=== PATIENT | male | born 1960 | race Caucasian/White ===

== ENCOUNTER 2016-10-06 14:52 | Observation (INO) | payer OTHER ==
[~2016-10-06] VITALS: Ht 185.4 cm; Wt 96.0 kg
--- NOTE | 2016-10-06 14:54 | ED.REPORT ---
HPI-General Illness Date of Service Oct 06, 2016 ED Provider: Dr. Diaz The pt is a 56 y/o male with a hx of anxiety and depression with previous suicide attempt who presents to the ED via EMS due to a suicide attempt about 2 hours ago. The pt took 30 tablets of 15mg trazodone. Associated sx include drowsiness. He denies drinking alcohol after taking the medication, recent fall , homicidal ideation, auditory and visual hallucinations, headache, chest pain, SOB, dysuria, shaking , hematochezia, abdominal pain, and diaphoresis. 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 She is concerned that the pt never seeks help when going through a difficult time. He states that this has been making things worse recently, depression is now considered severe. He states that he has had it for a long time, however it has been worse recently. No other complaints at this time. Nursing Notes Stated Complaint: SUICIAL W/OVERDOSE Nursing Notes Reviewed: Yes Allergies: Coded Allergies: No Known Allergies (Unverified , 10/06/16) Scheduled Fluoxetine (Prozac) 20 Mg Capsule 60 MG PO DAILY Scheduled PRN Diazepam (Valium) 10 Mg Tablet 10 MG PO DAILY PRN PRN For Anxiety General Time Seen by MD: 14:53 Chief Complaint Other (suicide attempt) Hx Obtained From: Patient Arrived By: Ambulance Sudden in Onset?: Yes Onset Occurred: 1 - 4 hours ago Symptom Duration: Since onset Severity: Current: No pain currently Severity: Maximum: No pain Recent Healthcare: No recent doctor visit Similar Sx Previous: Yes Past Medical History Past Medical History Depression with previous suicide attempt an year ago Anxiety Chronic back pain Past Surgical History none reported Family History Mother had anxiety Uncle commited suicide Sister has anxiety and seasonal depression Smoking History Never Smoker Social History Alcohol Use: Denies alcohol use Drug Use: Denies drug use Ambulatory Status Independent Review of Systems Reports: drowsiness Denies: drinking alcohol after taking the pills Denies: recent fall Full Review of Systems Constitutional: Denies: Fever Eyes: Denies: Eye pain bilateral Ears / Nose / Throat: Denies: Sore throat Respiratory: Denies: Shortness of breath Cardiovascular: Denies: Chest pain GI: Denies: Abdominal pain, Hematochezia Male: Denies Dysuria Musculoskeletal: Denies: Back pain Hematologic: Denies Bruising Skin: Denies Diaphoresis Neurologic: Denies: Headache, Shaking Psychiatric: Reports: Depression, Stress, Suicidal ideation, Denies: Hallucinations, auditory, Hallucinations, visual, Homicidal ideation Complete sys rev & neg: except as marked. Physical Exam Nursing note and vitals reviewed. Constitutional: Well-developed, well-nourished. Not diaphoretic. No agitation. Head: Normocephalic and atraumatic. Mouth/Throat: Oropharynx is clear. Dry mucous membranes. No oropharyngeal exudate. Eyes: EOM are normal. Pupils are equal, round, and reactive to light. Don't appreciate ocular clonus. Neck: Supple, no tracheal deviation. Cardiovascular: Normal rate, regular rhythm. Equal and intact distal pulses throughout. Pulmonary/Chest: Effort normal and breath sounds normal. No respiratory distress. Abdominal: Soft. No distension. There is no tenderness, rebound, or guarding. Bowel sounds present. Musculoskeletal: Range of motion grossly intact, moving all extremities. No edema or tenderness appreciated. Neurological: Orientedx3. Drowsy but answering all questions. Normal finger to nose testing. Grossly nonfocal exam. Strength and sensation intact and equal to bilateral upper and lower extremities. No inducible clonus. Skin: Warm and dry, no rashes or pallor appreciated. Psychiatric: Suicidal ideation. No homicidal ideation. No auditory and visual hallucinations. Vital Signs Vital Signs Date Time Temp Pulse Resp B/P Pulse Ox O2 Delivery O2 Flow Rate FiO2 10/06/16 16:34 36.7 64 16 119/70 99 Room Air 10/06/16 15:00 36.3 67 17 128/72 97 Room Air Initial VS: Reviewed Interpretation & Diagnostics Lab Results Interpretation Result Diagram: 10/06/16 1515 10/06/16 1515 Test 10/06/16 15:15 White Blood Count 4.9th/mm3 (3.8-10.1) Red Blood Count 5.50mil/mm3 (4.40-5.80) Hemoglobin 16.2g/dL (13.8-17.2) Hematocrit 46.6% (41.0-50.0) Mean Corpuscular Volume 84.7fL (81-100) Mean Corpuscular Hemoglobin 29.5pg (27.0-35.0) Mean Corpuscular Hemoglobin Concent 34.8% (32.0-37.0) Red Cell Distribution Width 14.4% (12.3-15.4) Platelet Count 106bil/L (150-400) Sodium Level 137mEq/L (134-144) Potassium Level 3.6mEq/L (3.5-5.2) Chloride Level 100mEq/L (97-108) Carbon Dioxide Level 21mmol/L (18-29) Blood Urea Nitrogen 3mg/dL (6-24) Creatinine 0.70mg/dL (0.76-1.27) Estimat Glomerular Filtration Rate 125mL/min (>59) Glucose Level 130mg/dL (60-99) Calcium Level 9.5mg/dL (8.5-10.1) Total Bilirubin 1.1mg/dL (0.0-1.2) Aspartate Amino Transf (AST/SGOT) 44U/L (0-50) Alanine Aminotransferase (ALT/SGPT) 35U/L (0-44) Alkaline Phosphatase 96U/L (25-150) Total Protein 7.8g/dL (6.4-8.4) Albumin 4.3g/dL (3.4-5.0) Salicylates Level < 3.0ug/mL (30-250) Acetaminophen Level < 15.0ug/mL Rx (10-25) Alcohols < 10mg/dL (0-10) ECG Interpretation ECG Interpretation: Normal sinnus rhythm. Rate 65. Normal intervals. Time: 15:34 Interpreted by: ED physician Re-Eval/Medical Decision Med Decision/Clinical Course In summary, 56-year-old male presenting to the ED for evaluation after an intentional overdose on trazodone approximately 2 hours prior to arrival. Differential considerations include serotonin syndrome, coingestion with APAP/ salicylate, metabolic abnormality, etc. No agitation, no diaphoresis. No clonus or hyperreflexia appreciated. No tremor. Afebrile. No signs of serotonin syndrome at this time. He denies any coingestions and initial laboratory studies support this with a negative drug screen and negative APAP/salicylate; 4 hours APAP ordered and pending. Poison control contacted, recommended laboratory studies, drug screen, APAP, salicylate levels. CBC grossly within normal limits except for a platelet count of 106, CMP grossly within normal limits. EKG demonstrates sinus rhythm, no acute ischemic changes, normal intervals. He will obviously need psychiatric evaluation once medically clear, awake, and interactive. After discussion with the patient and the inpatient service, decision made to admit the patient for further management and evaluation, telemetry, and psychiatric evaluation once appropriate. Patient and family agreeable to the plan as stated, no further questions. Time of Eval: 15:53 Re-Evaluation/Progress Note: The ED nurse called poison control and was recommended to carry out baseline labs, drug screen, check aspirin and Tylenol levels and supportive care. Consultation : Referral / Consult Name: Jesus Cintron MD Consulted With: Hospitalist Call Returned at: 04:30 Customer Energy Specialist: Will see patient, Agrees with eval, Agrees with plan, Accepts admit Counseled Regarding: Diagnosis, Lab results, Need for admission Discharge & Departure Primary Impression: Overdose Encounter type: initial encounter Injury intent: intentional self-harm Qualified Code: T50.902A - Poisoning by unspecified drugs, medicaments and biological substances, intentional self-harm, initial encounter Additional Impression: Suicide attempt Disposition: ADMITTED TO HOSPITAL Referrals: [facility] Scribe Attestation Portions of this note were transcribed by Sixto Hunt. I,, personally performed the history, physical exam and medical decision-making;I reviewed and confirmed the accuracy of the information in the transcribed note. Signed by Shawnee Zavala. 10/06/16 Дмитрий Diaz MD Oct 06, 2016 14:54 Sixto Hunt Oct 06, 2016 15:28
[2016-10-06 15:00] VITALS: BP 128/72; PULSE 67; RESP 17; O2SAT 97
[2016-10-06] MEDS ORDERED: 0.9% Sodium Chloride 1,000 ML IV ONE (15:11)
[2016-10-06 15:18] LABS: Mean Corpuscular Hemoglobin 29.5 pg (27.0-35.0); Mean Corpuscular Volume 84.7 fL (81-100)
[2016-10-06] MEDS ORDERED: PROZ20 PO (16:00)
[2016-10-06] MEDS ORDERED: DIAZ10TA PO (16:00)
[2016-10-06] MEDS ORDERED: Ondansetron 2 mg/mL 2 mL Inj IVPUSH PRN (16:30)
[2016-10-06 16:34] VITALS: BP 119/70; PULSE 64; RESP 16; O2SAT 99
--- NOTE | 2016-10-06 17:16 | PCM.HPMED ---
Subjective Date of Service Oct 06, 2016 Primary Provider: Admitting Physician: Primary Care Physician: Attending Physician: Chief Complaint: Suicidal attempt History of Present Illness: 56-year-old male with history of depression and anxiety disorder, no significant medical history presenting after drug overdose for suicidal attempt. Patient took 30 pills of trazodone 50 mg. Patient posted his plans on Facebook which alerted his nephew, activated EMS. Sister at the bedside was able to provide information as well as the patient. Patient admitted that he took trazodone for suicidal attempt. He was seen by his psychiatrist a week ago , denied any medicine changes. 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 Patient had first attempt earlier this year. And stated that this is his second episode. ED VS stable, heart [id number], afebrile, Labs showed negative of etoh. cbc/cmp all unremarkable. EKG showed NSR, Qtc<500. ROS: Patient was able to converse, alert and oriented 3, mildly drowsy. Patient denied seizure history, headache, dizziness, chest pain, difficulty breathing, palpitations, blurry vision, sweating, nausea, vomiting, abdominal pain. Patient has been eating okay, usually eats fast food at [place] per sister. denied constipation or diarrhea. Patient denied having previous cardiac disease or arrhythmias or seizure disorder. Patient currently denied homicidal ideation, however still has some thoughts of harming himself. No specific plan Patient is taking Prozac 60 mg every day along point trazodone 50 mg. Valium was also prescribed but patient does not take it. Patient does not remember his psychiatrist's name. d Review of Systems: Pertinent positives as noted in history of present illness. All other systems were reviewed and are negative Allergies Coded Allergies: No Known Allergies (Unverified , 10/06/16) Home Medications Patient is taking Prozac 60 mg every day along point trazodone 50 mg. Valium was also prescribed but patient does not take it. Patient does not remember his psychiatrist's name. PMH As described above in history of present illness Surgical History Denied any surgeries Family History Father had heart attack and diabetes Mother had depression Social History Hx Alcohol Use: No Hx Substance Use: No Hx Tobacco Use: No Smoking Status: Never Smoker Additional Information Lives alone Exam Vital Signs Vital Sign - Last Date Time Temp Pulse Resp B/P Pulse Ox O2 Delivery O2 Flow Rate FiO2 10/06/16 16:34 36.7 64 16 119/70 99 Room Air Exam NAD, comfortably laying down on the bed no JVD, MMM, no LAD RRR, nl s1, s2 no mrg CTAB, no w,c S,ND,NT,normoactive BS+ warm, no edema, pulses 2/2 Lab and Diagnostics Result Diagram: 10/06/16 1515 10/06/16 1515 Assessment & Plan Acute, active Suicidal attempt with drug overdose with trazodone [id number], POA, pt was mildly lethargic per report, however mentation already improving, denied structural heart disease, no s/s of QT prolongation, no hx of seizure, -monitor on telemetry likely 24hrs -hold all psychiatric medicine -Frequent neuro checks every 2 hours -1:1 sitter at the bedside given active suicidal ideation. -utox Chronic, stable Anxiety and depression, appreciate addiction social worker evaluation, patient likely benefit from inpatient psychiatric treatment dispo:Patient will be admitted with inpatient status with expectation of inpatient therapy for more than 2 midnights diet:NPO for now, likely to progress to general dvt ppx:LMWH Full code Time spent 65 minutes Jesus Cintron MD Oct 06, 2016 17:05
[2016-10-06 18:05] VITALS: BP 131/76; PULSE 85; RESP 16; O2SAT 96
--- NOTE | 2016-10-06 18:15 | NUR ---
Admit Pts comes via gurney but able to ambulate with steady gait to bed on own. A&OX4. Denies CP, SOB, Nausea, Pain. IV Right FA SL a this time. Pt denies SI at this time and states that he has no plan. Previous nurse states that pt endorsed SI and had a plan previously in ER. Sitter at bedside at all times. Bilateral eyes reddened. Care continues
[2016-10-06 18:20] VITALS: BP_SYST 129; BP_SYST 131; BP_DIAS 76; PULSE 74; PULSE 85; RESP 16; RESP 17; O2SAT 96; O2SAT 99
[2016-10-06 18:36] VITALS: PULSE 60
[2016-10-06 20:00] VITALS: PULSE 63
[2016-10-07 00:30] VITALS: BP 100/62; PULSE 69; RESP 18; O2SAT 93
[2016-10-07 04:46] VITALS: BP 106/62; PULSE 76; RESP 18; O2SAT 95
--- NOTE | 2016-10-07 05:33 | NUR ---
Safety and mood Pt has been cooperative with all care, denies wish or plan to harm self. One episode of emesis, nausea resolved with Zofran. Alert state allowed for safe swallow and advancement of diet per Md; pt does not have appetite. Observed sleeping through most of night. Ambulates safely in room. Sitter at bedside continuously for safety.
--- NOTE | 2016-10-07 06:21 | NUR ---
Family support Pt gave permission to discuss information with sister when she called. Very supportive family available. Sister, Lucy, left phone number on white board and on top facesheet and would like to be included in planning for discharge. She is especially interested in any services that pt might qualify for assistance and any references that can be given to find community support and services.
[2016-10-07 06:49] LABS: BASOPHILS % (AUTO) 0.2 % (0-3); EOSINOPHILS % (AUTO) 1.7 % (0-5); MONOCYTES % (AUTO) 9.5 % (4-12); Mean Corpuscular Hemoglobin 29.3 pg (27.0-35.0); Mean Corpuscular Volume 88.1 fL (81-100); NEUTROPHILS % (AUTO) 63.7 % (40-74); Platelet Count 122 bil/L (150-400)
[2016-10-07 07:07] LABS: Phosphorus 2.4 mg/dL (2.5-4.9)
[2016-10-07 08:53] VITALS: BP 99/58; PULSE 65; RESP 16; O2SAT 94
--- NOTE | 2016-10-07 10:38 | PCM.PNMED ---
Subjective Date of Service Oct 07, 2016 Subjective pt remained stable overnight, denied SI this AM, sitter at the bedside had episode of emesis once, but currently denied n/v/abd pain, AAOx3, denied, RIZZO, dizziness labs showed mildly elevated bilirubin no event on telemetry Exam Vital Signs Vital Sign - Last Date Time Temp Pulse Resp B/P Pulse Ox O2 Delivery O2 Flow Rate FiO2 10/07/16 08:53 36.8 65 16 99/58 94 Room Air Intake and Output 10/06/16 10/06/16 10/07/16 Cumulative From/Thru 15:00 23:00 07:00 10/06/16 15:00 - 10/07/16 05:37 Intake Total 2000 ml 100 ml 2100 ml Output Total 900 ml 900 ml Balance 1100 ml 100 ml 1200 ml Intake Oral 100 ml 100 ml IV Total 2000 ml 2000 ml Output Urine Total 900 ml 900 ml # Voids 1 1 # Bowel Movements 1 1 Exam NAD, comfortably laying down on the bed no JVD, MMM, no LAD RRR, nl s1, s2 no mrg CTAB, no w,c S,ND,NT,normoactive BS+ warm, no edema, pulses 2/2 IVs and Medications Medications Reviewed: Medications were reviewed in detail Lab and Diagnostics Result Diagram: 10/07/1661910/07/16619 Assessment & Plan Acute, active Suicidal attempt with drug overdose with trazodone [id number], POA, pt was mildly lethargic per report, however mentation already improving, denied structural heart disease, no s/s of QT prolongation, no hx of seizure, pt was monitored on telemetry overnight, no event noted. UTOX was negative. -pt remained asymptomatic, labs are unremarkable. -hold all psychiatric medicine -Frequent neuro checks every 2 hours -1:1 sitter at the bedside given active suicidal ideation. -appreciate Psychiatric consult today to optimize dispo Chronic, stable Anxiety and depression, appreciate secondary social studies teacher evaluation, patient likely benefit from inpatient psychiatric treatment dispo:Patient will be admitted with inpatient status with expectation of inpatient therapy for more than 2 midnights diet:general, pt is medically stable, likely d/c today inpatient psych unit vs home dvt ppx:LMWH Full code Time spent 35min Jesus Cintron MD Oct 07, 2016 10:38
--- NOTE | 2016-10-07 11:42 | NUR ---
Appetite Patient has refused breakfast and lunch and states he just doesn't feel like eating. Mat and I are encouraging the patient to have something to eat and drink. Takes occasional sips of sprite but refuses much more than this. Addendum: 10/07/16 at 1619 by BASSEM CHURCH RN Patient continues to refuse all meals. Continuing to offer patient something to eat and drink.
--- NOTE | 2016-10-07 12:02 | NUR ---
Family Support Patient's sister, Lucy, called to speak with the patient and requested to speak with the patient's nurse. Patient stated that it was okay to speak with his sister about his care. Spoke with Lucy about her desire to get resources for the patient and if there was any change in his plan. Lucy did say that she would like to have his providers closer to [facility] as they are all in [place]. Did speak with the patient about social work coming to speak with him and if he would be accepting of resources for him and he stated that he was and he would very much like them.
--- NOTE | 2016-10-07 12:09 | NUR ---
USP FOLLOW UP: Gave access and faxed facesheet to [facility] per JOHANNA and order Addendum: 10/07/16 at 1243 by LEONARDO WATERS CM ABOVE NOTE ENTERED ON WRONG PATIENT
[2016-10-07 12:21] VITALS: BP 99/61; PULSE 68; RESP 16; O2SAT 95
--- NOTE | 2016-10-07 16:15 | NUR ---
Zully Talked with patient about lovenox order and he reported to me that he has had a blood clot in his leg in the past after one of the times he was hospitalized for pneumonia. Talked with him about preventing a DVT including ambulation and lovenox injections. Encouraged the patient to ambulate in the hallways.
--- NOTE | 2016-10-07 16:18 | CONS ---
[address] [address] CONSULTATION REPORT PATIENT: NATASHA HERNANDEZ : 1960 MR#: [id number] ADMIT: 10/06/2016 JOB ID: [id number] PSYCHIATRIC CONSULTATION: DATE OF SERVICE: 10/07/2016 REQUESTING: Internal Medicine service IDENTIFICATION: The patient is a 56-year-old, white male. 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 He lives in [place]. REASON FOR ADMISSION: Client overdosed on thirty 50 mg trazodone in a suicide attempt. His sister's daughter noticed odd posts on Facebook and called for a welfare check. HISTORY OF PRESENT ILLNESS: I was asked to consult on this patient for evaluation of suicidal ideation and depression. I met with him for a 60 minute eval and reviewed course and records kept by [facility] staff. Client's main issue at this time is poor coping and extreme stress. He also has had symptoms of depression for the past month including poor sleep, interest, appetite, concentration, and over the past 24 hours, suicidal ideation. He has had one previous suicide attempt by overdosing on drugs in a suicide attempt on Thanksgiving. He has been on Prozac for the past 12 months with increasing doses from 20, 40 to 60 mg through provider, Yuli, at [facility]. The condition is fairly acute and has been developing over the past 12 months. Currently it is at a severe intensity manifesting with a 2nd suicide attempt in six months. All the above are made worse by poor sleep and by financial stressors. He is also struggling with the grief of his mother needing to go to geriatric care. 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 His father five years ago and his mother just moved to a group home. As a result, he is living in a mobile home and has severe credit difficulties. He does not see a way out. All the above symptoms are improved when he has good support from family and friends, when he sleeps well and when he has meaningful employment. He is currently presenting with no signs of emotional liability or difficulty with cognition or insight. His reality testing is intact. It is primarily his coping skills that have been overwhelmed. Client denied psychiatric review of systems for letitia, psychosis, anxiety, trauma or substance abuse. PAST MEDICAL HISTORY AND MEDICATIONS: Prozac 60 mg daily. He has been on Prozac starting at 20 mg for 12 months, trazodone 50 mg h.s. ALLERGIES: None. ILLNESSES: Arthritic pain in his knees, hip and back. FAMILY MEDICAL HISTORY: Three brothers, three sisters. He had an uncle who successfully suicided with a gun by shooting himself with a gun when the client was 47. His father at 81. PAST PSYCHIATRIC HISTORY: Client has been seeing a therapist, Yuli, through [facility] since December 2015 after the suicide attempt. He has not seen her for several months. PSYCHOSOCIAL HISTORY: Born in [place], [place]. Raised in the [facility]. 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 History of trauma: None. Drugs and alcohol: None. Lethality: Client had one previous suicide attempt in December 2015 around [facility], similar with an overdose. Client denies suicidal ideation, plan or intent now. Relationship history: Client was for 30 years but has been . Catholic: None. Legal: none. PHYSICAL EXAMINATION AND LABORATORY DATA: Reviewed from Internal Medicine and essentially normal. MENTAL STATUS EXAMINATION: Client disheveled but good eye contact. Behavior was calm. Attitude was animated. Speech was normal rate and rhythm. He is cooperative and pleasant. Mood euthymic. Affect congruent. Normal intensity, full range. Thought process, client is able to relate a coherent history. His thought process is coherent and logical and spontaneous. He does not have black and white thinking, nor tunnel vision. No signs of psychosis. Thought content, significant for themes of future planning, how he is going to take care of his dog and have more time with his family. He denied suicidal ideation, plan, or intent. Alert and oriented to person, place, and date. Insight and judgment appropriate. Impulse control highly contained but has a difficult time handling impulses of shame and embarrassment about money. Reality testing intact. Competence to handle current stressors appears to have returned to baseline. IMPRESSION: Client is a 56-year-old, white male, who has worked in [employer] his entire life and has been single after a 30 year relationship. He has been taking care of his mother and father. His father five years ago and his mother just moved to a group home. As a result, he has lost his housing and has significant credit difficulties (owes 15,000 dollars on a credit card). Client was feeling helpless, hopeless and saw suicide as his only option. He took an overdose of approximately 30 trazodone and posted some odd remarks on Facebook which was caught by his family. At this time, client is denying suicidal ideation and is willing to re-engage in therapy and medication management through the [facility]. We discussed the potential transitioning from Prozac at 60 mg per day to Cymbalta 30 mg daily and gabapentin 300 t.i.d. for mood stabilization and chronic pain. He appeared to understand the relative risk versus the relative benefits and was open to this possibility. We also did safety planning and he was able to detail a reasonable plan with me. DIAGNOSES: AXIS I Major depressive disorder. AXIS II: None. AXIS III: 1. Arthritis, back, hip and knee. 2. Recent overdose on thirty 50 mg trazodone. AXIS IV: Severe. AXIS V: Current Global Assessment of Functioning equal to 45. PLAN: Recommend client be discharged from the hospital with followup within the next two weeks at the [facility]. He has an established therapist and prescriber. Would recommend client be given a trial of Cymbalta 30 mg daily and gabapentin 300 t.i.d. Thank you for a very interesting consult.
--- NOTE | 2016-10-07 16:29 | NUR ---
Social Work- Initial Assessment/ Multidisciplinary Rounds Data: See Initial Assessment and Advance Directive Intervention for additional information. Pt discussed in rounds. Psychiatry to see pt today. SW to see patient for discharge planning assessment as well. Pt is a 56 year old male admitted 10/06/16 for overdose suicide attempt per H&P. Pt's insurance is [employer]. Pt's PCP is in [place] at the [facility], but needs to obtain PCP services in [place] or [place]. Pt's readmit risk score is not listed at this time. SW met with pt at bedside regarding discharge plan, SW role explained. Pt alert and oriented x3. Pt's capacity for self-care assessed. Pt resides in [place] alone. Pt is independent with ADLs and self-care. Pt uses no DME at baseline. Pt drives. Pt has no DPOA, declined information at this time. Pt stated his sister would provide transport home, sister confirmed that she would be able to pick him up after 1630 on weekdays. Pt recently relocated to [place] from [place] and has been having trouble finding work. Finances have been a concern for pt since his relocation. Pt reports feeling worried and stressed when he looked at his bills. Pt has a history of depression and anxiety, history of 7 days inpatient psychiatric tx in December of 2015 at [facility] in [place]. Pt reports seeing a psychiatrist a week ago named Yuli, last name unknown, who prescribes his medications. Pt reports that MD did not change any medications at that time. Pt's PCP, name unknown, does not manage pt's medication and pt has not seen PCP in about a month. Pt is agreeable to follow up with both providers after hospitalization as well as establishing new care closer to [place] upon d/c. When asked, pt states he is not willing to go to inpt tx if recommended. Pt denies any SI or HI at this time. Pt reports that he would contact his sister or his friends for support if he felt suicidal again. Pt reports that his sister lives close to him and that she is his main emotional support, but it is unclear to what extent he engages with her. Pt denies any history of drinking, smoking. Pt identifies his sister Lucy Blackman and friends as a support to him. Pt's sister Lucy was updated by phone [phone], agreeable to any resources and outpt follow up needed at d/c. Lucy reports that pt does not share too much with her and that she wishes she could help him more at times. Lucy confirms that pt does not have many coping skills or financial supports at this time. OPAL provided Discharge planning Checklist and requested that pt contact DIRECTOR OF SCIENTIFIC RESEARCH if needs identified. SW also provided outpt MH provider list and oriented pt to Crisis Line phone number. SW provided phone number and plan on whiteboard. Pt agreeable. SW will continue to follow. Assessment: Pt who will receive Psychiatry consultation Plan: SW to follow up re: Psychiatry recommendations. Pt denies current SI. Pt is agreeable to establishing outpt follow up closer to home at d/c if indicated. OPAL provided outpt MH provider list and oriented pt to Crisis Line phone number at bedside. SW will continue to follow. Kadie Stock MSW Addendum: 10/07/16 at 1650 by SANDRA STOCK Amended: Links added.
[2016-10-07 18:51] VITALS: BP 97/56; PULSE 63; RESP 16; O2SAT 94
--- NOTE | 2016-10-07 22:53 | NUR ---
PATIENT BELONGINGS RE:HEARING AID BELONGING ENTRY UPON DOCUMENTING PATIENTS BELONGINGS@SHIFT CHANGE, THIS HOME CARE MUSIC THERAPIST CONFIRMED WITH PATIENT HE DOES NOT USE OR OWN HEARING AIDS. IT WAS DOCUMENTED IN THE ED BELONGINGS THAT HE DID. RN INFORMED.
[2016-10-08 04:06] VITALS: BP 116/81; PULSE 82; RESP 20; O2SAT 97
--- NOTE | 2016-10-08 06:26 | NUR ---
Activity Pt continues to be cooperative with all care and currently denies wish or plan to harm self. Pt has a 1:1 sitter for safety. Up independently and steady on feet. Pt has been able to sleep throughout most of the shift without complaints.
[2016-10-08] MEDS ORDERED: DULoxetine 30 mg DR Capsule PO SCH (08:30)
[2016-10-08 10:20] VITALS: BP 100/60; PULSE 60; RESP 16; O2SAT 94
--- NOTE | 2016-10-08 10:39 | NUR ---
Sitter DC Sunshine Gupta Wildlife Manager came down and spoke with pt and pt nurse. Decision made to dc sitter as pt is stable at this time with no plan. Per MD notes pt is ready to be dc'd with sitter as a safe plan.
[2016-10-08] MEDS ORDERED: GABA300C PO (15:14)
[2016-10-08] MEDS ORDERED: DULO30CA PO (15:14)
--- NOTE | 2016-10-08 15:19 | PCM.DC.MED ---
Discharge Summary Date of Service Oct 08, 2016 Dates of Hospitalization Date of Hospital Admission Oct 06, 2016 at 17:53 Date of Discharge: Oct 08, 2016 Providers: Admitting Physician: Jesus Cintron MD Primary Care Physician: Other,Physician Attending Physician: Sanya Elizabeth MD Diagnosis at Time of Discharge Diagnosis at Time of Discharge Suicidal attempt with drug overdose with trazodone [id number] Consultations Psychiat Jay Jay Interiano Recommend client be discharged from the hospital with followup within the next two weeks at the [facility]. He has an established therapist and prescriber. Would recommend client be given a trial of Cymbalta 30 mg daily and gabapentin 300 t.i.d. 10/07/16 8303 Brief History Hospital Course Principle Diagnosis: suicidal attempt Secondary Diagnosis:Depression, Anxiety Physical exam: patient was seen and examined on the day of discharge 56-year-old male with history of depression and anxiety disorder, no significant medical history presented after drug overdose for suicidal attempt. Patient took 30 pills of trazodone 50 mg. Patient posted his plans on [employer] which alerted his nephew, activated EMS. Patient admitted that he took trazodone for suicidal attempt. He was seen by his psychiatrist a week ago, denied any medicine changes. 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 Patient had first attempt earlier this year. ED VS were stable, heart rate 64- 67, afebrile, Labs showed negative of etoh. cbc/cmp all unremarkable. EKG showed NSR, Qtc<500. Patient was able to converse, alert and oriented 3, mildly drowsy. Patient denied seizure history, headache, dizziness, chest pain, difficulty breathing, palpitations, blurry vision, sweating, nausea, vomiting, abdominal pain. Patient has been eating okay, usually eats fast food at [employer] per sister. denied constipation or diarrhea. Patient denied having previous cardiac disease or arrhythmias or seizure disorder. Patient currently denied homicidal ideation, however still has some thoughts of harming himself. No specific plans. Psychiatry were consulted, they advised to d/c patient home and start Cymbalta 30 mg and Gabapentin 300 tid, d/c Prozac. . Followup within the next two weeks at the [facility]. After patient improved he was discharged home with recommendation to follow up with his PCP, psychiatrist for further management of his medical problems. Patient Condition @ Discharge: good Discharge Disposition: home Discharge Diet: regular diet, heart healthy, low fat, low salt, high fiber Information Provided to Patient: information about discharge medications Discharge Medications: I discussed with patient medication dosage, usage, goals of therapy, side effects, alternatives. During discharge patient was allert, oriented, fully competent, able to make own informed decisions. We discussed possible severe side effects, adverse reactions, benefits, risks, alternatives of current and newly prescribed medications and diagnostic procedures. Patient verbalized understanding and agreed to current plan of care and discharge. TIME SPENT IN DISCHARGE ACTIVITY: Face to face activity greater then 30 minutes spent in discharge activity. 1. Discussed with patient re: discharge plan of care/treatment, and follow up care/services. 2. Patient/family agreed with discharge plan and further plan of care, all questions were answered/addressed, no further questions at the time of discharge. Exam Vital Signs (Last) Date Time Temp Pulse Resp B/P Pulse Ox O2 Delivery O2 Flow Rate FiO2 10/08/16 10:20 37.0 60 16 100/60 94 Room Air Test 10/06/16 15:15 10/06/16 17:12 10/06/16 17:37 10/07/16 06:20 Salicylates Level < 3.0ug/mL (30-250) Alcohols < 10mg/dL (0-10) Urine Opiates Screen Negative Urine Methadone Screen Negative Urine Barbiturates Screen Negative Urine Amphetamines Screen Negative Urine Benzodiazepines Screen Negative Urine Cocaine Metabolite Screen Negative Urine Cannabinoids Screen Negative Acetaminophen Level < 15.0ug/mL Rx (10-25) White Blood Count 5.8th/mm3 (3.8-10.1) Red Blood Count 4.88mil/mm3 (4.40-5.80) Hemoglobin 14.3g/dL (13.8-17.2) Hematocrit 43.0% (41.0-50.0) Mean Corpuscular Volume 88.1fL (81-100) Mean Corpuscular Hemoglobin 29.3pg (27.0-35.0) Mean Corpuscular Hemoglobin Concent 33.3% (32.0-37.0) Red Cell Distribution Width 14.7% (12.3-15.4) Platelet Count 122bil/L (150-400) Neutrophils (%) (Auto) 63.7% (40-74) Lymphocytes (%) (Auto) 24.7% (14-46) Monocytes (%) (Auto) 9.5% (4-12) Eosinophils (%) (Auto) 1.7% (0-5) Basophils (%) (Auto) 0.2% (0-3) Sodium Level 140mEq/L (134-144) Potassium Level 4.6mEq/L (3.5-5.2) Chloride Level 105mEq/L (97-108) Carbon Dioxide Level 25mmol/L (18-29) Blood Urea Nitrogen 5mg/dL (6-24) Creatinine 0.89mg/dL (0.76-1.27) Estimat Glomerular Filtration Rate 95mL/min (>59) Glucose Level 133mg/dL (60-99) Calcium Level 9.4mg/dL (8.5-10.1) Phosphorus Level 2.4mg/dL (2.5-4.9) Magnesium Level 2.0mg/dL (1.6-2.6) Total Bilirubin 1.5mg/dL (0.0-1.2) Aspartate Amino Transf (AST/SGOT) 35U/L (0-50) Alanine Aminotransferase (ALT/SGPT) 29U/L (0-44) Alkaline Phosphatase 84U/L (25-150) Total Protein 6.5g/dL (6.4-8.4) Albumin 3.9g/dL (3.4-5.0) Discharge Medications Discharge Medications Duloxetine (Cymbalta) 30 Mg Capsule.dr 30 MG PO DAILY Prescribed by: BEREKET DE LA CRUZ MD Gabapentin (Neurontin) 300 Mg Capsule 300 MG PO TID Prescribed by: BEREKET DE LA CRUZ MD As needed Diazepam (Valium) 10 Mg Tablet 10 MG PO DAILY PRN PRN For Anxiety (Reported) Followup Plan Follow-up with PCP in: Other (3-5 days after discharge from the hospital ) Sanya Elizabeth MD Oct 08, 2016 15:19
--- NOTE | 2016-10-08 15:35 | NUR ---
Social Work- Readiness for D/C Data: EMR reviewed. Psych has seen pt, recommending medication changes and outpt follow up with PCP in [place] within the next two weeks. OPAL met with pt at bedside regarding outpt follow up, pt is agreeable. Pt's psychiatric provider in [place], Yuli, is no longer available but PCP appointment was scheduled, information placed in discharge instructions. Establishment of care with outpt MH services discussed with pt, pt chose [facility] for outpt MH services. Authorization paperwork through [facility] obtained and signed by patient. OPAL spoke with [facility] regarding pt's clinic appointment, October 15 at 12:30 pm. Information included in d/c instruction. Pt also provided with resources regarding employment/job training, food k[employer]ger, financial assistance, and MH Crisis Line at bedside. Plan and resources explained to pt's sister by phone. All updated and agreeable to plan. Sister to transport home via POV. No additional needs identified. Assessment: Pt who is independent at baseline. Plan: Pt to follow up as an outpt for MH services, resources for additional support provided at bedside. Pt and sister updated and agreeable to plan. Sister to transport home via POV. No additional needs identified. Kadie Glass MSW
--- NOTE | 2016-10-08 17:10 | NUR ---
Discharge Went over discharge information with the patient and his sister including new prescriptions, any side effects to watch for, follow up appointments, and about the list of resources he was given by social work and utilizing them. Educated the patient on continuing to take the new medications as prescribed and that they may take a while to reach their peak. I also emphasized the importance of making his therapy appointments that have been scheduled for him-one this Thursday with his current provider and one next Thursday with a new provider in [facility]. He stated he would attend both appointments and showed verbal understanding of new medications and the importance of continuing counseling sessions and keeping in touch with his providers so he has a resource when/if he needs one. All personal belongings accompanied the patient out with his sister to her personal vehicle. IV DC'd intact.
== END 2016-10-08 16:50 | disposition home or self-care (01) ==
LOC: SED 14:52 → OSC 17:53
PROVIDERS: ADMIT Internal Medicine; ATTEND Internal Medicine
DX: T43.212A Poisoning by selective serotonin and norepinephrine reuptake inhibitors, intentional self-harm, initial encounter (principal); F41.8 Other specified anxiety disorders; M54.9 Dorsalgia, unspecified; Y92.9 Unspecified place or not applicable; Z91.5 Personal history of self-harm
CPT/HCPCS: 36415; 80053; 82948; 83735; 84100; 85025; 85027; 93005; 96361; 96372; 96374; 99285; G0378; G0480; J1650; J2405; J7030